=== PATIENT | male | born 1965 | race Caucasian/White ===

== ENCOUNTER 2019-08-19 13:30 | Outpatient (RCR) | payer OTHER, SELFPAY ==
--- NOTE | 2019-07-15 17:28 | ST.OPIE ---
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 Gates, ENT Reason for Referral muscle tension dysphonia Patient History General Information Mr. Michele Alvarez, a 53 year old male was seen today for a voice evaluation at the referral of Dr Gates, ENT at [facility]. Dr. Gates had seen Mr. 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 According to the records provided by Dr. Gates, the pt had stroboscopy performed with observation of false fold overhang obstructing the view of the true vocal folds. The true vocal folds were observed to be erythmatic with possible abnormal appearing mucosa. Additionally there was thickened mucous which obsured fully viewing the vocal folds. According to Mr. Alvarez, he has a medical history of allergies, which he feels are getting worse. He does not take allergy medication at this time. He also reported that his physician as well as Dr. Gates suggested that the pt has GERD/LPR. Dr. Gates has prescribed medication for reflux to be taken 2x/day. Additionally, Mr. Alvarez stated that Dr. Gates suggested he start taking an over the counter allergy medication. 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 He noted that he started his current job approximately 1 year ago, after which his symptoms began. Mr Alvarez reported that he has noticed that by the end of the day, he begins to lose his voice and it becomes more hoarse. 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 Oral-Motor Assessment Informal observation indicated OM structures to be WFL - Laryngeal Performance CAPE-V Overall Severity 75 Roughness 87 Breathiness 21 Strain 74 Pitch 19 Normal Resonance? Yes Additional Features Glottal Padilla,Pitch Instability Maximum Phonation Time MPT Norms: Women (15-25) Men (25-35) Loudness (50-60 dB); Speaking Rate: Oral Reading of Sentences (190 Words Per Minute); Oral Reading of Paragraphs (160-170 WPM); Speaking Rate in Conversation (150-250 WPM) Maximum Phonation Time 17.9s Maximum Phonation Time Adequate for Speech Jitter/Shimmer Norms: Jitter (Less than or equal to 1.040% - Frequency) Norms: Shimmer (Less than or equal to 3.810% - Amplitude) Jitter 6.33 Shimmer 12.85 Pitch Slade Pitch Slade Pitch Breaks,Cessation of Voicing Pitch Slade Comments Range during glide:82-358 Hz Muscle Tension Assessment Muscle Tension Assessment Jaw Tenderness with Palpation/Massage Yes,Right Breath Support Breath Support At Rest Abdominal Breath Support Sustained Phonation Abdominal Breath Support Conversation Abdominal Speaks on Room Air Yes Postural Alignment Stance Balanced Neck Jaw Jut,Static Shoulders Symmetrical Voice Pitch Range Norms: Women (100-300 Hz) Men (70-250 Hz) Fundamental Frequency Norms: Women (Mean: 225 Hz; Range: 155-334 Hz) Men ( Mean: 128 Hz; Range: 85-196 Hz) Voice Pitch Normal,Mildly Low Voice Loudness Normal,Mildly Loud Voice Phonatory-based Quality Harsh,Hoarse,Glottal Padilla Fundamental Frequency 104.5 Hz Resonance Nasal Resonance Normal Other Observations Aggressive Personality Therapeutic Techniques Therapy Tactics Shifting Tone Focus,Easy Onset ,Breath Support Findings Findings Moderate Impairment Observations Reflux Symptom Index = 16 (>13 = significant reflux disease) Voice/Resonance Assessment Assessment Mr. Michele Alvarez presented with a moderately severy dysphonia secondary to significant hyperfunction of the AP and lateral supraglottic structures. His false folds were obscuring the view of the true vocal folds. Additionally, Mr Alvarez has a history of allergies as well as a diagnoded GERD/LPR, which have contributed to his vocal function and use. Mr Alvarez uses his voice all day long in his job. At times he needs to use a more assetive voice at work, which he describes as low pitch and sharp. He reports that his voice weakens by the end of the day. The results of the assessment indicated that Mr Alvarez has significantly high Jitter and Shimmer scores, indicating significant asymmetric and highly variable vocal fold vibration. His vocal quality is harsh with glottal padilla ( false fold vibration??), all of which can contribute to the high Jitter/Shimmer values. Mr Alvarez's pitch is low, but still WNL; however, his low pitch may be the result of the observed erythema, etc., again contributory to the Jitter/ Shimmer values. - Recommendations Treatment Recommended Yes Treatment Frequency/Duration 1x/week - every other week ( per pt request) Therapy Recommendations Vocal hygiene, Abdominal breathing Resonant tone focus Vocal rest and relaxation/ meditation, etc Referral for massage therapy Short Term Goals Continue to follow MD,ENT prescriptions as prescribed. Increase awareness of abdominal breathing with full vocal system focus Tone focus awareness to reduce effort of vocal fold system tension Software Solutions Architect Goals Improved vocal quality to WNL Patient/Caregiver Education Patient/Family Education Described results of evaluation,Patient Understanding,Patient Needs More Info Vocally Abusive Behavior Behavior Rating Excessive Talking Always
--- NOTE | 2019-07-15 17:29 | ST.OPPOC ---
Visit Care Team Role Provider Type Jovany Perez MD Primary Care Provider Non-Staff Address: [address] [place] [address], [place], [address] Justin Gates MD Attending Provider Non-Staff Address: [address] [place] [address], [address], [place], [address] Speech Pathology Plan of Care General Information Mr. Michele Alvarez, a 53 year old male was seen today for a voice evaluation at the referral of Dr Gates, ENT at [facility]. Dr. Gates had seen Mr. 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 According to the records provided by Dr. Gates, the pt had stroboscopy performed with observation of false fold overhang obstructing the view of the true vocal folds. The true vocal folds were observed to be erythmatic with possible abnormal appearing mucosa. Additionally there was thickened mucous which obscured fully viewing the vocal folds. According to Mr. Alvarez, he has a medical history of allergies, which he feels are getting worse. He does not take allergy medication at this time. He also reported that his physician as well as Dr. Gates suggested that the pt has GERD/LPR. Dr. Gates has prescribed medication for reflux to be taken 2x/day. Additionally, Mr Gildardo Alvarez stated that Dr. Gates suggested he start taking an over the counter allergy medication. 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 He noted that he started his current job approximately 1 year ago, after which his symptoms began. Mr Alvarez reported that he has noticed that by the end of the day, he begins to lose his voice and it becomes more hoarse. Plan of Care Dates 07/15/19/-10/15/19 Short Term Goals Continue to follow ,ENT prescriptions as prescribed. Increase awareness of abdominal breathing with full vocal system focus Tone focus awareness to reduce effort of vocal fold system tension Senior Living Goals Improved vocal quality to WNL Please Sign and Return: I have reviewed this Plan of Care and certify that the skilled therapy services above are required to meet the patient?s needs. Physician Signature Date Printed Name and Credentials Clinical Instructor Signature Printed Name and Credentials
--- NOTE | 2019-08-05 15:20 | ST.OPTN ---
Visit Care Team Role Provider Type Jovany Perez MD Primary Care Provider Non-Staff Address: [address] [place] [address], [place], [address] Justin Gates MD Attending Provider Non-Staff Address: [address] [place] [address], [address], [place], [address] FLOWER CHENILLER Treatment Note FLOWER CHENILLER Treatment Note Start: 07/15/19 13:32 Freq: Status: Active Protocol: Document 08/05/19 14:29 LNK (Rec: 08/05/19 15:15 LNK [id number]) Speech Pathology Treatment Note Session Time Visit Start Time 13:30 Visit Stop Time 14:30 Total Visit Minutes 60 Visit Information Visit Number 2 Plan of Care Dates 07/15/19/-10/15/19 Setting Treatment Setting Outpatient Care Visit Type Note Type Treatment Note Next Note Type Next Note Type Treatment Note General Information General Information Mr. Michele Alvarez, a 53 year old male was seen today for a voice evaluation at the referral of Dr Gates, ENT at [facility]. Dr. Gates had seen Mr. 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 Subjective Identification Type Name,Picture Identification Reconciled With Intake Sheet Observations/Patient Presentation Pt noted that he saw Dr. Gates yesterday and had a stroboscopy performed. According to Michele, Dr Gates observed reduced swelling and no noted abnormal tissue observed. Per Michele, Dr Gates did observe the left ventricular fold to continue to be swollen, and the right side to be WNL. Dr. Gates reportedly is going to consult another ENT re: the left ventricular fold. Chief Complaint(s) Voice Rehab Expectation/Goals: Patient Goals Improved vocal quality and no pain when speaking Patient Knowledge/Awareness of FLOWER CHENILLER Role Excellent in Treatment Patient/Caregiver Compliance with Home Excellent Exercise Program Objective Short Term Goals Continue to follow MD,ENT prescriptions as prescribed. Increase awareness of abdominal breathing with full vocal system focus Tone focus awareness to reduce effort of vocal fold system tension Usp Goals Improved vocal quality to WNL Treatment Activities Reviewed Michele's last report, spent time in discussion re: his visit to Dr. Gates. Reviewed abdominal breathing for voicing and expressed the total vocal system with targeting abdominal breathing and tone focus with vibration in the nasal sinuses, etc. modeled use of nasal sounds with sigh, CV production in a chant-like pattern and overall reduction of the thoracic area. 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 Spent additional time in easy onset voicing to reduce glott al attack. Michele reported he is drinking more water, has started allergy medication and is taking PPI 2/day (x6 months). Overall he feel he is making improvement. He continues to feel strain in the laryngeal aea as he is speaking. Measured Jitter and Shimmer under 2 voices (1) not at work voice; J=1.46 and S=8.92. (2) Set Key Driver voice; J=4.67 and S=8. 86. Both measures are a big improvement over initial evaluation measures. Michele has made behavioral changes that are clearly effective in aiding vocal recovery. Assessment Patient Response to Treatment Excellent Rehab Potential Excellent Impairments Identified Vocal Quality,Vocal Hygiene Progress Towards Goals Excellent Progress Assessment of Overall Progress Improving Reviewed with Patient Goals,Progress Being Made,Home Exercise Program Plan Amount of Therapy Recommended 2-3 Months Comment every 2 weeks Length of Session 45 Minutes Therapeutic Contents Voice Training Therapy Recommendations Continue with Current Program
--- NOTE | 2019-08-19 14:26 | ST.OPTN ---
Visit Care Team Role Provider Type Jovany Perez MD Primary Care Provider Non-Staff Address: [address] [place] [address], [place], [address] Justin Gates MD Attending Provider Non-Staff Address: [address] [place] [address], [address], [place], [address] FUEL VERIFICATION TECHNICIAN Treatment Note FUEL VERIFICATION TECHNICIAN Treatment Note Start: 07/15/19 13:32 Freq: Status: Active Protocol: Document 08/19/19 14:17 LNK (Rec: 08/19/19 14:25 LNK [id number]) Speech Pathology Treatment Note Session Time Visit Start Time 13:30 Visit Stop Time 14:10 Total Visit Minutes 40 Visit Information Visit Number 3 Plan of Care Dates 07/15/19/-10/15/19 Setting Treatment Setting Outpatient Care Visit Type Note Type Treatment Note Next Note Type Next Note Type Treatment Note General Information General Information Mr. Michele Alvarez, a 53 year old male was seen today for a voice evaluation at the referral of Dr Gates, ENT at [facility]. Dr. Gates had seen Mr. 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 Subjective Identification Type Name,Picture Identification Reconciled With Intake Sheet Observations/Patient Presentation Pt noted that he saw Dr. Gates yesterday and had a stroboscopy performed. According to Michele, Dr Gates observed reduced swelling and no noted abnormal tissue observed. Per Michele, Dr Gates did observe the left ventricular fold to continue to be swollen, and the right side to be WNL. Dr. Gates reportedly is going to consult another ENT re: the left ventricular fold. Chief Complaint(s) Voice Rehab Expectation/Goals: Patient Goals Improved vocal quality and no pain when speaking Patient Knowledge/Awareness of FUEL VERIFICATION TECHNICIAN Role Excellent in Treatment Patient/Caregiver Compliance with Home Excellent Exercise Program Objective Short Term Goals Continue to follow MD,ENT prescriptions as prescribed. Increase awareness of abdominal breathing with full vocal system focus Tone focus awareness to reduce effort of vocal fold system tension Shelter Goals Improved vocal quality to WNL Treatment Activities Michele reported that he has been in an exceptionally busy period at work. He has not been practicing the exercises, has not been drinking water. However he has been continuing to use a softer and less forceful voice, and has been consistently taking the medications for reflux. He reported a return of the ache in his throat on the left side. Additionally, he feels his voice is rougher than the last session. Measure of jitter and shimmer indicated his numbers for each have returned to the level of his initial evaluation visit. Problem-solving with Michele how to work around his vocally active job as well as to help him remember to incorporate water and relaxed throat while speaking. Assessment Patient Response to Treatment Excellent Rehab Potential Excellent Impairments Identified Vocal Quality,Vocal Hygiene Progress Towards Goals Excellent Progress Assessment of Overall Progress Improving Reviewed with Patient Goals,Progress Being Made,Home Exercise Program Plan Amount of Therapy Recommended 2-3 Months Comment will follow up with pt in 1 month Length of Session 45 Minutes Therapeutic Contents Voice Training Therapy Recommendations Continue with Current Program
== END 2019-08-20 12:44 ==
LOC: SP 13:30
PROVIDERS: PCP Specialist; Visit Provider Student in an Organized Health Care Education/Training Program
DX: K21.9 Gastro-esophageal reflux disease without esophagitis (principal)
CPT/HCPCS: 92507; 92520; 92524